=== PATIENT | male | born 1955 | race Caucasian/White ===

== ENCOUNTER 2020-09-11 21:21 | Emergency (ER) | payer OTHER ==
[2020-09-12 00:02] LABS: BASOPHIL 0.3 % (0-2); EOSINOPHIL 1.5 % (0-7); HGB 13.2 g/dl (13.2-18.0); LYMPHOCYTE 13.6 % (15-48); MCH 30.7 pg (25.0-31.0); MCHC 33.8 g/dL (32.0-36.0); MCV 90.7 fL (78.0-100.0); MONOCYTE 11.4 % (0-12); MPV 10.2 fL (6.0-9.5); NEUTROPHIL 72.5 % (41-80); NRBC 0; PLT 163 K/uL (150-400); RDW 12.2 % (11.5-14.0); WBC 5.9 K/uL (4.0-10.5)
[2020-09-12 00:12] LABS: ALBUMIN 3.3 g/dL (3.4-5.0); BILIRUBIN - TOTAL 0.5 mg/dL (0.2-1.0); BUN/CREAT RATIO (CALC) 18.3 RATIO; CREATININE 0.71 mg/dL (0.67-1.17); GLOBULIN (CALCULATION) 3.9 g/dL; POTASSIUM 3.7 mmol/L (3.5-5.1); TOTAL PROTEIN 7.2 g/dL (6.4-8.2)
[2020-09-12 00:17] LABS: LACTIC ACID 1.1 mmol/L (0.4-1.9)
== END 2020-09-12 06:02 | disposition home or self-care (01) ==
LOC: FER 21:21
PROVIDERS: Emergency Medicine
DX: U07.1 COVID-19 (principal); G35 Multiple sclerosis; Z79.899 Other long term (current) drug therapy; Z88.6 Allergy status to analgesic agent; Z88.8 Allergy status to other drugs, medicaments and biological substances
CPT/HCPCS: 36415; 71045; 80053; 83605; 83690; 84145; 85025; 93005; J2405; J7030; J7050; M0239

== ENCOUNTER 2022-01-26 15:26 | Emergency (ER) | payer MEDICARE ==
[2022-01-26 17:06] LABS: BASOPHIL 0.5 % (0-2); EOSINOPHIL 2.6 % (0-7); HCT 39.2 % (42.0-52.0); HGB 12.9 g/dl (13.2-18.0); LYMPHOCYTE 13.5 % (15-48); MCH 30.1 pg (25.0-31.0); MCHC 32.9 g/dL (32.0-36.0); MCV 91.4 fL (78.0-100.0); MONOCYTE 11.4 % (0-12); MPV 9.9 fL (6.0-9.5); NEUTROPHIL 71.5 % (41-80); NRBC 0; PLT 180 K/uL (150-400); RBC 4.29 M/uL (4.70-6.00); RDW 12.8 % (11.5-14.0); WBC 11.1 K/uL (4.0-10.5)
[2022-01-26 17:23] LABS: BUN/CREAT RATIO (CALC) 25.6 RATIO; CREATININE 0.78 mg/dL (0.67-1.17); POTASSIUM 3.8 mmol/L (3.5-5.1)
[2022-01-26 17:32] LABS: LACTIC ACID 0.9 mmol/L (0.4-1.9)
[2022-01-26] MEDS ORDERED: AMOX TR-K CLV1 EAC4 PO (18:09)
== END 2022-01-26 18:41 | disposition home or self-care (01) ==
LOC: FER 15:26
PROVIDERS: Emergency Medicine
DX: L03.113 Cellulitis of right upper limb (principal); I10 Essential (primary) hypertension; Z88.5 Allergy status to narcotic agent; Z88.8 Allergy status to other drugs, medicaments and biological substances
CPT/HCPCS: 36415; 73200; 80048; 83605; 85025; 87040